=== PATIENT | female | born 1975 | race Two or more races ===

== ENCOUNTER 2017-07-29 20:40 | Emergency (ER) | payer MEDICAID, OTHER, SELFPAY ==
[~2017-07-29] VITALS: Ht 165.1 cm; Wt 94.7 kg
[2017-07-29 20:59] VITALS: BP 125/86
[2017-07-29] MEDS ORDERED: LORazepam 1MG TABLET ONE (22:05)
[2017-07-29] MEDS ORDERED: LIDOCAINE 1%, 20ML ONE (22:05)
[2017-07-29] MEDS ORDERED: LORazepam 1MG TABLET PO ONE (22:30)
[2017-07-29] MEDS ORDERED: LIDOCAINE 1%, 20ML SQ ONE (22:30)
[2017-07-29] MEDS ORDERED: BACITRACIN ZINC OINT 500U/GM, 0.9 GM ONE (22:50)
== END 2017-07-29 23:20 | disposition home or self-care (01) ==
LOC: ED 23:15
DX: L60.0 Ingrowing nail (principal)
CPT/HCPCS: 11730